=== PATIENT | male | born 1955 | race Caucasian/White ===

== ENCOUNTER 2017-12-22 20:22 | Emergency (ER) | payer SELFPAY ==
[2017-12-22 20:26] VITALS: BP 127/77
--- NOTE | 2017-12-22 20:29 | ER Report ---
History and Physical Time Seen By MD: 20:29 HPI/ROS CHIEF COMPLAINT: Redness and pain to right biceps area HISTORY OF PRESENT ILLNESS: 62-year-old male IV drug abuser presents complaining of 2 days of pain and swelling to his right biceps area. After injecting substance in his right antecubital area. Patient notes no fever, chills or body aches. He notes 6/10 pain with movement of his right bicep REVIEW OF SYSTEMS: Respiratory: No cough, no dyspnea. Cardiovascular: No chest pain, no palpitations. Gastrointestinal: No vomiting, no abdominal pain. Musculoskeletal: No back pain. Home Meds Active Scripts Tramadol Hcl (TRAMADOL HCL) 50 Mg Tablet, 1 TAB PO Q6H PRN for PAIN, #12 MG TAKE ONE TABLETS BY MOUTH EVERY SIX HOURS NEEDED Prov:MICKI MENDEZ DO 12/22/17 Cephalexin 500 Mg Tab (KEFLEX 500 MG TAB) 500 Mg Tablet, 500 MG PO Q6H for infection, #28 TAB Prov:MICKI MENDEZ DO 12/22/17 Sulfamethoxazole/Trimet 800-160 Mg Tab (BACTRIM DS TABLET) 1 Each Tablet, 1 TAB PO Q12H for infection, #14 TAB Prov:MICKI MENDEZ DO 12/22/17 Past Medical/Surgical History IV drug abuse Reviewed Nurses Notes: Yes Old Medical Records Reviewed: Yes Constitutional Vital Sign - Last 24 Hours 12/22/17 20:26 Temp 98.4 Pulse 99 Resp 18 B/P (MAP) 127/77 Pulse Ox 93 O2 Delivery Room Air Physical Exam General Appearance: The patient is alert, has no immediate need for airway protection and no current signs of toxicity. Vital signs stable, afebrile, pulse ox normal Eyes: Pupils equal and round no injection. Respiratory: Chest is non tender, lungs are clear to auscultation. Cardiac: regular rate and rhythm Gastrointestinal: Abdomen is soft and non tender, no masses, bowel sounds normal. Musculoskeletal: Neck: Neck is supple and non tender. Extremities have full range of motion and are non tender. There are numerous scarred injection sites to the bilateral arms in the both antecubital areas. Th e right bicep is firm and erythematous. Fluctuance to suggest abscess at this time. Skin: No rashes or lesions. DIFFERENTIAL DIAGNOSIS: After history and physical exam differential diagnosis was considered for cellulitis, abscess, muscle rupture Medical Decision Making ED Course/Re-evaluation ED Course Patient was admitted to an examination room. H&P was done. The dental diagnoses was considered. Patient was swelling and erythema to his right bicipital area. His likely infection from IV drug abuse. There is no fluctuance to suggest an abscess. Patient will be double covered with Keflex and Bactrim. He is given a limited supply of tramadol for Her pain relief. He is advised to take ibuprofen and apply heating pad to the affected area. He's advised to follow-up with general surgery early next week if unimproved Decision to Disposition Date: Dec 22, 2017 Decision to Disposition Time: 20:40 Depart Departure Latest Vital Signs Vital Signs Date Time Temp Pulse Resp B/P (MAP) Pulse Ox O2 Delivery O2 Flow Rate FiO2 12/22/17 20:26 98.4 99 18 127/77 93 Room Air Impression: Primary Impression: Cellulitis of right upper arm Additional Impression: IV drug abuse Condition: Improved Disposition: HOME OR SELF-CARE Referrals: O[facility]OU [facility] MD New Scripts Tramadol Hcl (TRAMADOL HCL) 50 Mg Tablet 1 TAB PO Q6H PRN for PAIN, #12 MG TAKE ONE TABLETS BY MOUTH EVERY SIX HOURS NEEDED Prov: MICKI MENDEZ DO 12/22/17 Cephalexin 500 Mg Tab (KEFLEX 500 MG TAB) 500 Mg Tablet 500 MG PO Q6H for infection, #28 TAB Prov: MICKI MENDEZ DO 12/22/17 Sulfamethoxazole/Trimet 800-160 Mg Tab (BACTRIM DS TABLET) 1 Each Tablet 1 TAB PO Q12H for infection, #14 TAB Prov: MICKI MENDEZ DO 12/22/17 Patient Instructions: Cellulitis (ED) Additional Instructions: Follow-up with general surgery Problem Qualifiers MICKI MENDEZ DO Dec 22, 2017 20:29
[2017-12-22] MEDS ORDERED: CEPH500T7 PO (20:43)
[2017-12-22] MEDS ORDERED: SULF-198 PO (20:43)
[2017-12-22] MEDS ORDERED: TRAM-420 PO (20:43)
[2017-12-22] MEDS ORDERED: traMADol 50 MG TAB TH 2 TAB/BOTTLE PO ONE (20:45)
[2017-12-22] MEDS ORDERED: CEPHALEXIN MONO 500 MG CAP PO ONE (20:45)
[2017-12-22] MEDS ORDERED: TRIMETH/SULFA DS 160-800MG TAB PO ONE (20:45)
== END 2017-12-22 20:55 | disposition home or self-care (01) ==
LOC: ER 20:37
DX: L03.113 Cellulitis of right upper limb (principal); F19.10 Other psychoactive substance abuse, uncomplicated
CPT/HCPCS: 99281